=== PATIENT | male | born 1945 | race Caucasian/White ===

== ENCOUNTER 2017-01-18 10:41 | Day surgery (SDC) | payer MEDICARE, BC ==
[~2017-01-18] VITALS: Ht 180.3 cm; Wt 107.2 kg
[~2017-01-18 10:41] MED LIST: ALBU5SOL6 INH; ALBU6.7H INH; DOXA4TAB3 PO; FERR220S2 PO; FLEC50TA25 PO; FLUT1DIS5 IH; GLUC1TAB27 PO; LOSA50TA6 PO; MELA1TAB19 SL; METO25TA35 PO; MONT10TA6 PO; OMEG-69 PO; OXYB5TAB7 PO; PANT40TA5 PO; SERT25TA3 PO; TADA5TAB2 PO; TIOT18CA INH
[2017-01-18] MEDS ORDERED: LACTATED RINGERS 1,000 ML IV SCH (11:33)
[2017-01-18 11:34] VITALS: BP 179/109
[2017-01-18 12:24] LABS: HEMATOCRIT 35.3 % (39.2-51.8); HEMOGLOBIN 11.9 g/dL (13.7-18.0); WHITE BLOOD COUNT 4.2 x10^3/uL (3.4-10)
[2017-01-18 12:34] LABS: ASPARTATE AMINO TRANSFERASE 19 U/L (15-37); BLOOD UREA NITROGEN 8 mg/dL (7-18)
[2017-01-18] MEDS ORDERED: PROPOFOL 10 MG/ML, 20ML ONE (12:34)
[2017-01-18] MEDS ORDERED: ALBUTEROL SULFATE 200 PUFFS/8.5 GR INH ONE (12:34)
[2017-01-18] MEDS ORDERED: LABETALOL 5MG/ML, 20ML ONE (14:11)
[2017-01-18] MEDS: LABETALOL 5MG/ML, 20ML IVPush PRN ×2 (14:15→14:24)
[2017-01-18] MEDS ORDERED: hydrALAzine 20 MG/ML, 1ML ONE (14:33)
[2017-01-18] MEDS ORDERED: hydrALAzine 20 MG/ML, 1ML IV ONE (15:00)
== END 2017-01-18 16:20 ==
LOC: OUT 10:41
PROVIDERS: ATTEND Internal Medicine Gastroenterology
DX: Z09 Encounter for follow-up examination after completed treatment for conditions other than malignant neoplasm (principal); K63.5 Polyp of colon; D12.3 Benign neoplasm of transverse colon; D12.0 Benign neoplasm of cecum; K21.0 Gastro-esophageal reflux disease with esophagitis; K22.70 Barrett's esophagus without dysplasia; K44.9 Diaphragmatic hernia without obstruction or gangrene; K28.9 Gastrojejunal ulcer, unspecified as acute or chronic, without hemorrhage or perforation; D64.9 Anemia, unspecified; Z87.19 Personal history of other diseases of the digestive system; Z98.84 Bariatric surgery status; J44.9 Chronic obstructive pulmonary disease, unspecified; Z98.890 Other specified postprocedural states; Z72.89 Other problems related to lifestyle
CPT/HCPCS: 36415; 43239; 45380; 45385; 80053; 85025; 88305; J0360; J2704; J7120